=== PATIENT | male | born 1965 | race Caucasian/White ===

== ENCOUNTER 2016-08-06 09:48 | Emergency (ER) ==
[2016-08-06 09:54] VITALS: BP 137/83; TEMP 97.3; BMI 23.8
--- NOTE | 2016-08-06 10:29 | ED.PDOC ---
General ED Provider: Dr. GRICELDA BLACKWELL JR Chief Complaint: Back Pain Stated Complaint: hx 2 back surg--chronic back pain-stopped seeing pain management due to not effective-recent flare up with pain started 2 weeks ago-- no recent injury[End]97.3 80 16 97% 137/83 12/28 patient notes only medicationof benefit has been norco 10 no benefit from non opiates no benefit ultram has had MR banuelos last surgery wants referral to surgeon but unable to see PMD Time Seen by Physician: 10:29 Mode of Arrival: Walk-In Information Source: Patient Exam Limitations: No limitations Primary Care Provider: JADA CASTILLO Nursing and Triage Documentation Reviewed and Agree: No Musculoskeletal Complaint Exam - Back Pain Complaint/Exam Mechanism of Injury: Reports: No known trauma Symptoms Are: Worse Timing: Intermittent Initial Severity: Moderate Current Severity: Moderate Location: Reports: Diffuse Character: Reports: Sharp, Aching Aggravating: Reports: Movements, Lifting Alleviating: Reports: Rest Associated Signs and Symptoms: Reports: Numbness, Tingling. Denies: Swelling, Redness, Bruising, Fever, Weakness, Abdominal pain, Flank pain, Bladder incontinence, Bowel incontinence, Weight loss, Pain with weight bearing Related History: Reports: Previous back injury TAD Risk Factors: Reports: Smoking AAA Risk Factors: Reports: Smoking Cauda Equina Risk Factors: Reports: Lower extremity numbness Epidural Abcess Risk Factors: Reports: Lower extremity numbness Related Surgical History: Reports: Back Surgery, Fusion Focal Tenderness: No Paraspinal Muscle Tenderness: Yes Paraspinal Muscle Spasm: Yes Scoliosis: No Lordosis: No Kyphosis: No SLR Test: Right Negative, Left Negative Hip Motion Testing Pain: Right Negative, Left Negative (pain nonfocal able to tolerate exam without difficulty) Focal Weakness: Present: None Focal Sensory Loss: Present: None Gait: Present: Normal Differential Diagnoses: Epidural Abcess, Neoplasm, Strain, Sprain Review of Systems - Review Of Systems Constitutional: Reports: No symptoms Eyes: Reports: No symptoms Ears, Nose, Mouth, Throat: Reports: No symptoms Respiratory: Reports: No symptoms Cardiac: Reports: No symptoms GI: Reports: No symptoms : Reports: No symptoms Musculoskeletal: Reports: Back pain, Muscle pain, Muscle stiffness Skin: Reports: No symptoms Neurological: Reports: No symptoms Endocrine: Reports: No symptoms Hematologic/Lymphatic: Reports: No symptoms All Other Systems: Other Past Medical History - Past Medical History Previously Healthy: Yes Endocrine: Reports: None Cardiovascular: Reports: None Respiratory: Reports: Other (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 3) Hematological: Reports: None Gastrointestinal: Reports: None Genitourinary: Reports: None Neuro/Psych: Reports: None Musculoskeletal: Reports: Back Pain Cancer: Reports: Other (prostate ca-- AGE 45) - Surgical History General Surgical History: Reports: Back Surgery (twice), Other (prostates surgery) - Family History Family History: Reports: None - Social History Smoking Status: Current every day smoker, Heavy tobacco smoker Hx Substance Use: No Alcohol Screening: None Physical Exam - Physical Exam Appearance: Well-appearing, Thin Pain Distress: Moderate Eyes: BELINDA, EOMI, Conjunctiva clear ENT: Ears normal, Nose normal, Oropharynx normal Neck: Supple Respiratory: Airway patent, Breath sounds clear, Breath sounds equal, Respirations nonlabored Cardiovascular: RRR, Pulses normal, No rub, No murmur GI/: Soft, Nontender, No masses, Bowel sounds normal, No Organomegaly Musculoskeletal: Normal strength, ROM intact, No edema, No calf tenderness Skin: Warm, Dry, Normal color Neurological: Sensation intact, Motor intact, Reflexes intact (complains of pain with SLR but non focal able to tolerate exam withou difficulty-nonfocal), Cranial nerves intact, Alert, Oriented Psychiatric: Affect appropriate, Mood appropriate Critical Care Note - Critical Care Note Total Time (mins): 0 Course - Course Orders, Labs, Meds: Lab Review 08/06/16 10:36 Urine Color Yellow Urine Clarity Clear Urine pH 7.0 Ur Specific Caro 1.010 Urine Protein Negative Urine Glucose (UA) Negative Urine Ketones Negative Urine Blood Negative Urine Nitrite Negative Urine Bilirubin Negative Urine Urobilinogen 0.2 Ur Leukocyte Esterase Negative Orders Category Date Time Status URINALYSIS C & S IF INDICATED Stat LAB 08/06/16 10:[address] LUMBAR SPINE W/O CONTRAST Stat RADS 08/06/16 10:49 Completed Vital Signs: Temp Pulse Resp BP Pulse Ox 08/06/16 09:49 97.3 F L 80 16 137/83 97 Departure - Departure Time of Disposition: 11:33 Disposition: HOME SELF-CARE Discharge Problem: Acute exacerbation of chronic low back pain Instructions: Lower Back Exercises (ED), Chronic Back Pain (ED), Acute Low Back Pain (ED), Low Back Strain (ED) Condition: Good Pt referred to PMD for follow-up: Yes Additional Instructions: Naprosyn for pain recommend use for three to five days for any inflammation [place] for pain not controlled should resolve with medications and stretching exercises follow up with PMD discuss specialty referral or MRI if indicated return if fever over 101.0, if worsening Prescriptions: Hydrocodone Bit/Acetaminophen [[place] 5-325] 1 - 2 tab PO Q6HR PRN #12 tablet PRN Reason: pain Naproxen [Naprosyn] 500 mg PO Q12HR PRN #30 tablet PRN Reason: PAIN Allergies/Adverse Reactions: Allergies No Known Allergies Allergy (Unverified 08/06/16 09:55) Home Medications: Ambulatory Orders Hydrocodone Bit/Acetaminophen [[place] 5-325] 1 - 2 tab PO Q6HR PRN #12 tablet Lansoprazole [Prevacid] 30 mg PO DAILY 08/06/16 Naproxen [Naprosyn] 500 mg PO Q12HR PRN #30 tablet 08/06/16
[2016-08-06 10:54] LABS: BILIRUBIN,URINE Negative (NEGATIVE); KETONES,URINE Negative (NEGATIVE); LEUKOCYTE ESTERASE ,URINE Negative (NEGATIVE); NITRITE,URINE Negative (NEGATIVE); PROTEIN,URINE Negative (NEGATIVE); URINE, BLOOD Negative (NEGATIVE)
[2016-08-06 10:55] LABS: ADD URINE MICROSCOPIC NO
--- NOTE | 2016-08-06 11:37 | CT ---
EXAM: CT of the lumbar spine without contrast History: Worsening back pain. Comparison: None available. Technique: Multiplanar CT images through the lumbar spine were obtained without the administration of IV contrast Findings: No acute fracture or subluxation. Anterior fusion of L5-S1 with grossly intact hardware. Mild to moderate degenerative disc disease at L2-L3 with endplate sclerosis and osteophyte formati on with some vacuum disc phenomenon. T12-L1: No significant disc bulge, central canal stenosis or bony neural foraminal narrowing. L1-L2: No significant disc bulge, central canal stenosis or bony neural foraminal narrowing. L2-L3: No significant disc bulge, central canal stenosis or bony neural foraminal narrowing. L3-L4: No significant disc bulge, central canal stenosis or bony neural foraminal narrowing. L4-L5: Small disc bulge effacing the anterior thecal sac with no significant central canal stenosis or bony neural foraminal narrowing. L5-S1: No significant bony central canal stenosis. Mild to moderate bilateral bony neural foramina l narrowing secondary to facet hypertrophy. Impression: No acute osseous abnormality of the lumbar spine. Other findings as detailed above.
== END 2016-08-06 12:02 | disposition home or self-care (01) ==
LOC: ED 09:48
DX: M54.5 Low back pain (principal); G89.29 Other chronic pain; F17.210 Nicotine dependence, cigarettes, uncomplicated
CPT/HCPCS: 81001; 99282

== ENCOUNTER 2016-08-13 09:43 | Emergency (ER) ==
[2016-08-13 09:54] VITALS: BP 148/89; TEMP 96.7; BMI 23.6
--- NOTE | 2016-08-13 10:02 | ED.PDOC ---
General ED Provider: Dr. ULYSSES LEACH Chief Complaint: Back Pain Stated Complaint: low back pain Time Seen by Physician: 09:45 Mode of Arrival: Walk-In Information Source: Patient Exam Limitations: No limitations Primary Care Provider: JADA CASTILLO Nursing and Triage Documentation Reviewed and Agree: Yes Musculoskeletal Complaint Exam - Back Pain Complaint/Exam Mechanism of Injury: Reports: No known trauma Onset/Duration: chronic Symptoms Are: Still present Timing: Intermittent Episodes Lasting: Days Initial Severity: Moderate Current Severity: Moderate Character: Reports: Throbbing, Spasmodic, Stiffness Aggravating: Reports: Movements, Lifting, Bending, Walking Alleviating: Reports: Rest, Position Associated Signs and Symptoms: Denies: Swelling, Redness, Bruising, Fever, Weakness, Numbness, Tingling, Abdominal pain, Flank pain, Bladder incontinence, Bowel incontinence, Weight loss, Pain with weight bearing Related History: Reports: Similar episode TAD Risk Factors: Reports: None AAA Risk Factors: Reports: None Cauda Equina Risk Factors: Reports: None Epidural Abcess Risk Factors: Reports: None Related Surgical History: Reports: None Focal Tenderness: No Paraspinal Muscle Tenderness: No Paraspinal Muscle Spasm: No Scoliosis: No Lordosis: No Kyphosis: No SLR Test: Right Negative, Left Negative Hip Motion Testing Pain: Right Negative, Left Negative Focal Weakness: Present: None Focal Sensory Loss: Present: None Gait: Present: Normal Differential Diagnoses: Strain, Sprain Review of Systems - Review Of Systems Constitutional: Reports: No symptoms Eyes: Reports: No symptoms Ears, Nose, Mouth, Throat: Reports: No symptoms Respiratory: Reports: No symptoms Cardiac: Reports: No symptoms GI: Reports: No symptoms : Reports: No symptoms Musculoskeletal: Reports: Back pain Skin: Reports: No symptoms Neurological: Reports: No symptoms Endocrine: Reports: No symptoms Hematologic/Lymphatic: Reports: No symptoms All Other Systems: Reviewed and Negative Past Medical History - Past Medical History Previously Healthy: Yes Endocrine: Reports: None Cardiovascular: Reports: None Respiratory: Reports: Other (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 3) Hematological: Reports: None Gastrointestinal: Reports: None Genitourinary: Reports: None Neuro/Psych: Reports: None Musculoskeletal: Reports: Back Pain Cancer: Reports: Other (prostate ca-- AGE 45) Other Pertinent Past Medical History: back surg--prostate ca--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 3--chronic back paincance - Surgical History General Surgical History: Reports: Back Surgery (twice), Other (prostates surgery) - Family History Family History: Reports: None - Social History Smoking Status: Current every day smoker Hx Substance Use: No Alcohol Screening: None Physical Exam - Physical Exam Appearance: Well-appearing, No pain distress, Well-nourished Eyes: BELINDA, EOMI, Conjunctiva clear ENT: Ears normal, Nose normal, Oropharynx normal Respiratory: Airway patent, Breath sounds clear, Breath sounds equal, Respirations nonlabored Cardiovascular: RRR, Pulses normal, No rub, No murmur GI/: Soft, Nontender, No masses, Bowel sounds normal, No Organomegaly Musculoskeletal: Normal strength, ROM intact, No edema, No calf tenderness Skin: Warm, Dry, Normal color Neurological: Sensation intact, Motor intact, Reflexes intact, Cranial nerves intact, Alert, Oriented Psychiatric: Affect appropriate, Mood appropriate Critical Care Note - Critical Care Note Total Time (mins): 0 Course - Course Vital Signs: Temp Pulse Resp BP Pulse Ox 08/13/16 09:43 96.7 F L 79 20 148/89 H 98 Departure - Departure Time of Disposition: 10:02 Disposition: HOME SELF-CARE Discharge Problem: Backache Instructions: Back Pain (ED), Chronic Back Pain (ED) Condition: Good Pt referred to PMD for follow-up: No Additional Instructions: Please call your Family Physician as soon as possible to schedule a follow-up appointment. Allergies/Adverse Reactions: Allergies No Known Allergies Allergy (Verified 08/13/16 09:50) Home Medications: Ambulatory Orders Lansoprazole [Prevacid] 30 mg PO DAILY 08/06/16 Naproxen [Naprosyn] 500 mg PO Q12HR PRN #30 tablet 08/06/16
== END 2016-08-13 10:05 | disposition home or self-care (01) ==
LOC: ED 09:43
DX: M54.5 Low back pain (principal); F17.210 Nicotine dependence, cigarettes, uncomplicated
CPT/HCPCS: 99282

== ENCOUNTER 2016-08-25 15:18 | Emergency (ER) ==
[2016-08-25 15:31] VITALS: BP 124/89; TEMP 97.9; BMI 23.6
--- NOTE | 2016-08-25 15:40 | ED.PDOC ---
General ED Provider: Dr. ULYSSES LEACH Chief Complaint: Back Pain Stated Complaint: back pain Time Seen by Physician: 15:30 Mode of Arrival: Walk-In Information Source: Patient Exam Limitations: No limitations Primary Care Provider: JADA CASTILLO Nursing and Triage Documentation Reviewed and Agree: Yes Musculoskeletal Complaint Exam - Back Pain Complaint/Exam Mechanism of Injury: Reports: No known trauma Onset/Duration: chronic Symptoms Are: Still present Timing: Intermittent Initial Severity: Moderate Current Severity: Moderate Character: Reports: Aching Aggravating: Reports: None Alleviating: Reports: None Associated Signs and Symptoms: Denies: Swelling, Redness, Bruising, Fever, Weakness, Numbness, Tingling, Abdominal pain, Flank pain, Bladder incontinence, Bowel incontinence, Weight loss, Pain with weight bearing Related History: Reports: Similar episode TAD Risk Factors: Reports: None AAA Risk Factors: Reports: None Cauda Equina Risk Factors: Reports: None Epidural Abcess Risk Factors: Reports: None Related Surgical History: Reports: None Focal Tenderness: No SLR Test: Right Negative, Left Negative Hip Motion Testing Pain: Right Negative, Left Negative Focal Weakness: Present: None Focal Sensory Loss: Present: None Gait: Present: Normal Differential Diagnoses: Strain, Sprain Review of Systems - Review Of Systems Constitutional: Reports: No symptoms Eyes: Reports: No symptoms Ears, Nose, Mouth, Throat: Reports: No symptoms Respiratory: Reports: No symptoms Cardiac: Reports: No symptoms GI: Reports: No symptoms : Reports: No symptoms Musculoskeletal: Reports: Back pain Skin: Reports: No symptoms Neurological: Reports: No symptoms Endocrine: Reports: No symptoms Hematologic/Lymphatic: Reports: No symptoms All Other Systems: Reviewed and Negative Past Medical History - Past Medical History Previously Healthy: Yes Endocrine: Reports: None Cardiovascular: Reports: None Respiratory: Reports: Other (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 3) Hematological: Reports: None Gastrointestinal: Reports: None Genitourinary: Reports: None Neuro/Psych: Reports: None Musculoskeletal: Reports: Back Pain Cancer: Reports: Other (prostate ca-- AGE 45) Other Pertinent Past Medical History: back surg--prostate ca--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 3--chronic back paincance - Surgical History General Surgical History: Reports: Back Surgery (twice), Other (prostates surgery) - Family History Family History: Reports: None - Social History Smoking Status: Current every day smoker Hx Substance Use: No Alcohol Screening: None Physical Exam - Physical Exam Appearance: Well-appearing, No pain distress, Well-nourished Eyes: BELINDA, EOMI, Conjunctiva clear ENT: Ears normal, Nose normal, Oropharynx normal Respiratory: Airway patent, Breath sounds clear, Breath sounds equal, Respirations nonlabored Cardiovascular: RRR, Pulses normal, No rub, No murmur GI/: Soft, Nontender, No masses, Bowel sounds normal, No Organomegaly Musculoskeletal: Normal strength, ROM intact, No edema, No calf tenderness Skin: Warm, Dry, Normal color Neurological: Sensation intact, Motor intact, Reflexes intact, Cranial nerves intact, Alert, Oriented Psychiatric: Affect appropriate, Mood appropriate Critical Care Note - Critical Care Note Total Time (mins): 0 Course - Course Vital Signs: Temp Pulse Resp BP Pulse Ox 08/25/16 15:24 97.9 F 88 18 124/89 97 Departure - Departure Time of Disposition: 15:39 Disposition: HOME SELF-CARE Discharge Problem: Back pain Qualifiers: Back pain location: low back pain Back pain laterality: midline Sciatica presence: without sciatica Instructions: Chronic Back Pain (ED) Condition: Good Pt referred to PMD for follow-up: No Additional Instructions: Please call your Family Physician as soon as possible to schedule a follow-up appointment. Prescriptions: Hydrocodone/Acetaminophen [[place] 5-325 Tablet] 1 each PO Q6HR PRN #20 tablet PRN Reason: PAIN Allergies/Adverse Reactions: Allergies No Known Allergies Allergy (Verified 08/25/16 15:22) Home Medications: Ambulatory Orders Lansoprazole [Prevacid] 30 mg PO DAILY 08/06/16 Naproxen [Naprosyn] 500 mg PO Q12HR PRN #30 tablet 08/06/16 Hydrocodone/Acetaminophen [[place] 5-325 Tablet] 1 each PO Q6HR PRN #20 tablet 12/04
== END 2016-08-25 15:50 | disposition home or self-care (01) ==
LOC: ED 15:18
DX: M54.5 Low back pain (principal); F17.210 Nicotine dependence, cigarettes, uncomplicated
CPT/HCPCS: 99282

== ENCOUNTER 2016-08-31 08:32 | Emergency (ER) ==
[2016-08-31 08:40] VITALS: BP 149/85; TEMP 97.5; BMI 23.6
[2016-08-31] MEDS ORDERED: TORADOL IM STA (08:51)
--- NOTE | 2016-08-31 08:56 | ED.PDOC ---
General ED Provider: Dr. YANDEL TONG Chief Complaint: Back Pain Stated Complaint: Has chronic back pain, he is not going to the pain management. Time Seen by Physician: 08:52 Mode of Arrival: Walk-In Information Source: Patient Primary Care Provider: JADA CASTILLO Nursing and Triage Documentation Reviewed and Agree: Yes Musculoskeletal Complaint Exam - Back Pain Complaint/Exam Mechanism of Injury: Reports: No known trauma Symptoms Are: Still present Timing: Constant Initial Severity: Moderate Current Severity: Moderate Location: Reports: Discrete Character: Reports: Aching, Throbbing Aggravating: Reports: Movements, Lifting Alleviating: Reports: None Associated Signs and Symptoms: Denies: Swelling, Redness, Bruising, Fever, Weakness, Numbness, Tingling, Abdominal pain, Flank pain, Bladder incontinence, Bowel incontinence, Weight loss, Pain with weight bearing Related History: Reports: Similar episode TAD Risk Factors: Reports: None AAA Risk Factors: Reports: None Cauda Equina Risk Factors: Reports: None Epidural Abcess Risk Factors: Reports: None Related Surgical History: Reports: None Focal Tenderness: Yes Paraspinal Muscle Tenderness: Yes Paraspinal Muscle Spasm: Yes Scoliosis: No Lordosis: No Kyphosis: No SLR Test: Right Negative, Left Negative Hip Motion Testing Pain: Right Negative, Left Negative Focal Weakness: Present: None Focal Sensory Loss: Present: None Gait: Present: Normal Differential Diagnoses: Arthritis, Strain Review of Systems - Review Of Systems Constitutional: Reports: No symptoms Eyes: Reports: No symptoms Ears, Nose, Mouth, Throat: Reports: No symptoms Respiratory: Reports: No symptoms Cardiac: Reports: No symptoms GI: Reports: No symptoms : Reports: No symptoms Musculoskeletal: Reports: Back pain Skin: Reports: No symptoms Neurological: Reports: No symptoms Endocrine: Reports: No symptoms Hematologic/Lymphatic: Reports: No symptoms All Other Systems: Reviewed and Negative Past Medical History - Past Medical History Previously Healthy: Yes Endocrine: Reports: None Cardiovascular: Reports: None Respiratory: Reports: Other (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 3) Hematological: Reports: None Gastrointestinal: Reports: None Genitourinary: Reports: None Neuro/Psych: Reports: None Musculoskeletal: Reports: Back Pain Cancer: Reports: Other (prostate ca-- AGE 45) Other Pertinent Past Medical History: back surg--prostate ca--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 3--chronic back paincance - Surgical History General Surgical History: Reports: Back Surgery (twice), Other (prostates surgery) - Family History Family History: Reports: None - Social History Smoking Status: Current every day smoker, Heavy tobacco smoker Smoking Cessation Counseling Time: > 3 min - 10 min Hx Substance Use: No Alcohol Screening: None - Immunizations Tetanus Shot up to Date: Yes Physical Exam - Physical Exam Appearance: Well-appearing, No pain distress, Well-nourished Eyes: BELINDA, EOMI, Conjunctiva clear ENT: Ears normal, Nose normal, Oropharynx normal Respiratory: Airway patent, Breath sounds clear, Breath sounds equal, Respirations nonlabored Cardiovascular: RRR, Pulses normal, No rub, No murmur GI/: Soft, Nontender, No masses, Bowel sounds normal, No Organomegaly Musculoskeletal: Normal strength, ROM intact, No edema, No calf tenderness Skin: Warm, Dry, Normal color Neurological: Sensation intact, Motor intact, Reflexes intact, Cranial nerves intact, Alert, Oriented Psychiatric: Affect appropriate, Mood appropriate Critical Care Note - Critical Care Note Total Time (mins): 0 Course - Course Orders, Labs, Meds: Orders Category Date Time Status Ketorolac Tromethamine [Toradol] MEDS 08/31/16 08:51 Stat 30 mg IM ONCE STA Medications Generic Name Dose Route Start Last Admin Trade Name Freq PRN Reason Stop Dose Admin Ketorolac Tromethamine 30 mg 08/31/16 08:51 Toradol IM 08/31/16 08:52 ONCE STA Vital Signs: Temp Pulse Resp BP Pulse Ox 08/31/16 08:32 97.5 F L 77 16 149/85 H 97 Departure - Departure Time of Disposition: 08:59 Disposition: HOME SELF-CARE Discharge Problem: Backache Instructions: Lumbar Radiculopathy (ED) Condition: Stable Pt referred to PMD for follow-up: Yes (spine surgeon) Additional Instructions: Patient has f/u with spine surgeon. rest hot pack Prescriptions: Prednisone 5 mg PO BIDWM #14 tablet Tramadol HCl 50 mg PO BID #14 tablet Allergies/Adverse Reactions: Allergies No Known Allergies Allergy (Verified 08/31/16 08:39) Home Medications: Ambulatory Orders Lansoprazole [Prevacid] 30 mg PO DAILY 08/06/16 Naproxen [Naprosyn] 500 mg PO Q12HR PRN #30 tablet 08/06/16 Prednisone 5 mg PO BIDWM #14 tablet 08/31/16 Tramadol HCl 50 mg PO BID #14 tablet 08/31/16 Disposition Discussed With: Patient
== END 2016-08-31 09:21 | disposition home or self-care (01) ==
LOC: ED 08:32
DX: M54.9 Dorsalgia, unspecified (principal); G89.29 Other chronic pain; F17.210 Nicotine dependence, cigarettes, uncomplicated
CPT/HCPCS: 96372; 99282

== ENCOUNTER 2017-10-28 18:54 | Emergency (ER) | payer OTHER ==
[2017-10-28 19:07] VITALS: BP 145/82; TEMP 97.6; BMI 24.3
--- NOTE | 2017-10-28 19:11 | ED.PDOC ---
General ED Provider: Dr. TOSIN MILLAN Chief Complaint: Knee Pain/Injury Stated Complaint: patient is a 51 year old male who states he has had right knee pain for the past 10 days after he bent it. Has pain with weight bearing. Has Appointment with PCP in one week. pain got worse today. Also complains of right upper inguinal area pain for the past few days that is not associated with bowel movement. States he has been lifting alot. Time Seen by Physician: 19:10 Mode of Arrival: Walk-In Information Source: Patient Exam Limitations: No limitations Primary Care Provider: JADA CASTILLO Nursing and Triage Documentation Reviewed and Agree: Yes Does patient meet sepsis criteria?: No System Inflammatory Response Syndrome: Not Applicable Sepsis Protocol: For patient's 13 years and over: Temp is 96.8 and below OR 101 and greater Pulse >90 BPM Resp >20/minute Acutely Altered Mental Status Are patient's symptoms suggestive of a new infection, such as: -Pneumonia -Skin, Soft Tissue -Endocarditis -UTI -Bone, Joint Infection -Implantable Device -Acute Abdominal Infection -Wound Infection -Meningitis -Blood Stream Catheter Infection -Unknown Musculoskeletal Complaint Exam - Knee Pain Complaint/Exam Mechanism of Injury: Reports: Trauma (from squating ) Onset/Duration: 3 days ago Symptoms Are: Still present Onset of Pain: Reports: Immediate Initial Severity: Moderate Current Severity: Moderate Location: Reports: Discrete (Medial and posterior aspect of the knee. ) Character: Reports: Aching, Throbbing Aggravating: Reports: Movement, Weight bearing, Prolonged standing Able to Bear Weight: Yes Related History: Reports: Occupational injury (but does not want to claim it as such ). Denies: Similar episode Septic Arthritis Risk Factors: Reports: None Gout Risk Factors: Reports: None Knee Findings: Present: Tenderness (Tenderness to palpation right medical colateral ligament. ). Absent: Rotation, Ligamentous instability Review of Systems - Review Of Systems Constitutional: Reports: No symptoms Eyes: Reports: No symptoms Ears, Nose, Mouth, Throat: Reports: No symptoms Respiratory: Reports: No symptoms Cardiac: Reports: No symptoms GI: Reports: Abdominal pain (Right inguinal area.) : Reports: No symptoms Musculoskeletal: Reports: Joint pain (Right knee ) Skin: Reports: No symptoms Neurological: Reports: No symptoms Endocrine: Reports: No symptoms Hematologic/Lymphatic: Reports: No symptoms All Other Systems: Reviewed and Negative Past Medical History - Past Medical History Previously Healthy: Yes Endocrine: Reports: None Cardiovascular: Reports: None Respiratory: Reports: Other (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 3) Hematological: Reports: None Gastrointestinal: Reports: None Genitourinary: Reports: None Neuro/Psych: Reports: None Musculoskeletal: Reports: Back Pain Cancer: Reports: Other (prostate ca-- AGE 45) Other Pertinent Past Medical History: back surg--prostate ca--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 3--chronic back paincance - Surgical History General Surgical History: Reports: Back Surgery (twice), Other (prostates surgery) - Family History Family History: Reports: None - Social History Smoking Status: Current every day smoker, Heavy tobacco smoker Hx Substance Use: No Alcohol Screening: None Physical Exam - Physical Exam Appearance: Well-appearing Ill-appearing: Moderate Pain Distress: Moderate Neck: Supple Respiratory: Airway patent, Breath sounds clear, Breath sounds equal, Respirations nonlabored Cardiovascular: RRR, Pulses normal, No rub, No murmur GI/: Tender (Right inguinal area. No evidence of hernia or incarceration ) Musculoskeletal: Normal strength, ROM intact (Tenderness to palpation right medical colateral ligament. ) Skin: Warm, Dry, Normal color Neurological: Sensation intact, Motor intact, Reflexes intact, Cranial nerves intact, Alert, Oriented Interpretation - Radiology Interpretation Radiology Interpretation By: ED Physician Radiology Results: Negative Exam Interpreted: Other (Knee x ray right ) Radiology Interpretation By: Radiologist Radiology Results: Negative Exam Interpreted: CT Scan (CT pelvis ) Critical Care Note - Critical Care Note Total Time (mins): 0 Course - Course Orders, Labs, Meds: Lab Review 10/28/17 19:45 Urine Color Yellow Urine Clarity Clear Urine pH 6.0 Ur Specific [place] 1.020 Urine Protein Negative Urine Glucose (UA) Negative Urine Ketones Negative Urine Blood Negative Urine Nitrite Negative Urine Bilirubin Negative Urine Urobilinogen 0.2 Ur Leukocyte Esterase Negative Orders Category Date Time Status ADALBERTO [ED ADALBERTO WRAP] .ONCE EMERGENCY 10/28/17 19:35 Active URINALYSIS C & S IF INDICATED Stat LAB 10/28/17 19:45 Completed Ketorolac Tromethamine [Toradol] MEDS 10/28/17 19:41 Discontinued 60 mg IM ONCE STA CT PELVIS W/O CONTRAST Stat RADS 10/28/17 19:34 Taken KNEE, RIGHT 4 VIEWS Stat RADS 10/28/17 19:07 Taken Medications Discontinued Medications Generic Name Dose Route Start Last Admin Trade Name Freq PRN Reason Stop Dose Admin Ketorolac Tromethamine 60 mg 10/28/17 19:41 10/28/17 19:52 Toradol IM 10/28/17 19:42 60 mg ONCE STA Administration Vital Signs: Temp Pulse Resp BP Pulse Ox 10/28/17 18:57 97.6 F 84 20 145/82 H 98 Departure - Departure Time of Disposition: 20:13 Disposition: HOME SELF-CARE Discharge Problem: Right knee sprain Qualifiers: Encounter type: initial encounter Involved ligament of knee: medial collateral ligament Qualified Code(s): S83.411A - Sprain of medial collateral ligament of right knee, initial encounter Instructions: Knee Sprain (ED) Condition: Stable Pt referred to PMD for follow-up: Yes IPMP verified?: No Additional Instructions: Take Medications as prescribed Follow up with PCP as scheduled Prescriptions: Tramadol HCl [Ultram] 50 mg PO Q6H PRN #14 tablet PRN Reason: Severe Pain Allergies/Adverse Reactions: Allergies No Known Allergies Allergy (Verified 10/28/17 19:05) Home Medications: Ambulatory Orders Tramadol HCl [Ultram] 50 mg PO Q6H PRN #14 tablet 10/28/17 Disposition Discussed With: Patient, Family
[2017-10-28] MEDS ORDERED: TORADOL IM STA (19:41)
--- NOTE | 2017-10-28 20:10 | CT ---
Exam: CT scan of the pelvis without contrast. Date: 10/28/2017. Comparison: None. HISTORY: Right lower quadrant and knee pain. TECHNIQUE: Helical scan of the pelvis was performed without contrast. FINDINGS: The study began just above the iliac crests. The soft tissue and musculature overlying th e bony pelvis are normal. The small bowel within the lower abdomen and pelvis appear normal. The ap pendix and colon within the lower abdomen pelvis is normal. The pelvic sidewall is normal. The blad chintan and rectum are normal. There is no free pelvic fluid. Inguinal regions are normal. In L5-S1 anterior interbody fusion is present. The bony pelvis and left hip are normal. There is joaquin bchondral cysts along the medial margin of the right acetabulum. Impression: No acute findings in the pelvis. Degenerative changes in the right hip.
--- NOTE | 2017-10-29 07:38 | DI ---
EXAM: Radiographs, right knee HISTORY: Right knee pain. COMPARISON: None available. TECHNIQUE: Four views. FINDINGS: Bone mineralization is normal. There is no fracture or dislocation. The joint spaces are maintained. No focal soft tissue abnormality is seen. IMPRESSION: No fracture or dislocation.
== END 2017-10-28 20:37 | disposition home or self-care (01) ==
LOC: ED 18:54
DX: S83.411A Sprain of medial collateral ligament of right knee, initial encounter (principal); R10.30 Lower abdominal pain, unspecified; X50.1XXA Overexertion from prolonged static or awkward postures, initial encounter; F17.210 Nicotine dependence, cigarettes, uncomplicated
CPT/HCPCS: 81001; 96372; 99283

== ENCOUNTER 2017-11-12 22:43 | Emergency (ER) ==
[2017-11-12] MEDS ORDERED: EYE-STREAM OP STA (22:46)
[2017-11-12] MEDS ORDERED: TETRACAINE 0.5% UNIT-DOSE OP STA (22:46)
[2017-11-12 22:50] VITALS: BP 150/91; TEMP 97.6; BMI 23.5
--- NOTE | 2017-11-12 23:02 | ED.PDOC ---
General ED Provider: Dr. JADA CASTILLO-ER Chief Complaint: Eye Problem Stated Complaint: i was grinding and i got something in my eye Time Seen by Physician: 23:01 Mode of Arrival: Walk-In Information Source: Patient Exam Limitations: No limitations Primary Care Provider: JADA CASTILLO Nursing and Triage Documentation Reviewed and Agree: Yes Does patient meet sepsis criteria?: No System Inflammatory Response Syndrome: Not Applicable Sepsis Protocol: For patient's 13 years and over: Temp is 96.8 and below OR 101 and greater Pulse >90 BPM Resp >20/minute Acutely Altered Mental Status Are patient's symptoms suggestive of a new infection, such as: -Pneumonia -Skin, Soft Tissue -Endocarditis -UTI -Bone, Joint Infection -Implantable Device -Acute Abdominal Infection -Wound Infection -Meningitis -Blood Stream Catheter Infection -Unknown EENT Complaint Exam - Eye Complaint/Exam Onset/Duration: a few hours Symptoms Are: Still present Timing: Constant Initial Severity: Mild Current Severity: Mild Location: Left Character: Reports: Dull, Throbbing, Foreign body sensation Aggravating: Reports: Blinking Alleviating: Reports: None Associated Signs and Symptoms: Reports: Clear drainage Related History: Reports: Foreign body Eye Surgical History: Reports: None Penetrating Injury Risk Factors: Grinding Globe Rupture Risk Factors: None Optic Artery Occlusion Risk Factors: None Visual Field: Normal Extraocular Movement: Normal Orbit Findings: Normal Globe Findings: Intact Lid Findings: Normal Corneal Findings: Clear Fundi: Normal Slit Lamp Used: No Differential Diagnoses: Foreign Body Review of Systems - Review Of Systems Constitutional: Reports: No symptoms Eyes: Reports: Foreign body sensation, Inflammation, Pain Ears, Nose, Mouth, Throat: Reports: No symptoms Respiratory: Reports: No symptoms Cardiac: Reports: No symptoms GI: Reports: No symptoms : Reports: No symptoms Musculoskeletal: Reports: No symptoms Skin: Reports: No symptoms Neurological: Reports: No symptoms Endocrine: Reports: No symptoms Hematologic/Lymphatic: Reports: No symptoms All Other Systems: Reviewed and Negative Past Medical History - Past Medical History Previously Healthy: Yes Endocrine: Reports: None Cardiovascular: Reports: None Respiratory: Reports: Other (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 3) Hematological: Reports: None Gastrointestinal: Reports: None Genitourinary: Reports: None Neuro/Psych: Reports: None Musculoskeletal: Reports: Back Pain Cancer: Reports: Other (prostate ca-- AGE 45) Other Pertinent Past Medical History: back surg--prostate ca--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 3--chronic back paincance - Surgical History General Surgical History: Reports: Back Surgery (twice), Other (prostates surgery) - Family History Family History: Reports: None - Social History Smoking Status: Current every day smoker, Heavy tobacco smoker Hx Substance Use: No Alcohol Screening: None - Immunizations Tetanus Shot up to Date: Yes Physical Exam - Physical Exam Appearance: Well-appearing Pain Distress: Mild Eyes: BELINDA, EOMI ENT: Ears normal, Nose normal, Oropharynx normal Neck: Supple Respiratory: Airway patent, Breath sounds clear, Breath sounds equal, Respirations nonlabored Cardiovascular: RRR, Pulses normal, No rub, No murmur GI/: Soft, Nontender, No masses, Bowel sounds normal, No Organomegaly Musculoskeletal: Normal strength, ROM intact, No edema, No calf tenderness Skin: Warm, Dry, Normal color Neurological: Sensation intact, Motor intact, Reflexes intact, Cranial nerves intact, Alert, Oriented Psychiatric: Affect appropriate, Mood appropriate Critical Care Note - Critical Care Note Total Time (mins): 0 Course - Course Orders, Labs, Meds: Orders Category Date Time Status Balanced Salt Solution [Eye-Stream] MEDS 11/12/17 22:46 Discontinued 1 bottle OP ONCE STA Tetracaine HCl/Pf [Tetracaine 0.5% Unit-Dose] MEDS 11/12/17 22:46 Discontinued 2 drop OP ONCE STA Medications Discontinued Medications Generic Name Dose Route Start Last Admin Trade Name Freq PRN Reason Stop Dose Admin Eye Irrigation Solution 1 bottle 11/12/17 22:46 Eye-Stream OP 11/12/17 22:47 ONCE STA Tetracaine HCl 2 drop 11/12/17 22:46 Tetracaine 0.5% Unit-Dose OP 11/12/17 22:47 ONCE STA Vital Signs: Temp Pulse Resp BP Pulse Ox 11/12/17 22:45 97.6 F 79 20 150/91 H 98 Departure - Departure Time of Disposition: 23:03 Disposition: HOME SELF-CARE Discharge Problem: Foreign body, eye Qualifiers: Encounter type: initial encounter Laterality: left Qualified Code(s): T15.92XA - Foreign body on external eye, part unspecified, left eye, initial encounter Instructions: Eye Foreign Body (ED) Condition: Good Pt referred to PMD for follow-up: Yes IPMP verified?: No Additional Instructions: keep patch on eye--norco 7.5 q 4hrs prn pain#6--come to office at 9 to get eye doctor referral Allergies/Adverse Reactions: Allergies No Known Allergies Allergy (Verified 11/12/17 22:49) Home Medications: Ambulatory Orders 1 [No Reported Medications] 11/12/17 Disposition Discussed With: Patient
[2017-11-12] MEDS ORDERED: NORCO 7.5-325 PO STA (23:05)
[2017-11-12] MEDS ORDERED: NORCO 7.5-325 ONE (23:07)
[2017-11-12] MEDS ORDERED: BLEPHAMIDE EYE OINTMENT OP SCH (23:45)
[2017-11-13] MEDS ORDERED: BLEPHAMIDE EYE OINTMENT OP ONE (00:57)
== END 2017-11-12 23:30 | disposition home or self-care (01) ==
LOC: ED 22:43
DX: T15.92XA Foreign body on external eye, part unspecified, left eye, initial encounter (principal); F17.210 Nicotine dependence, cigarettes, uncomplicated
CPT/HCPCS: 99282